=== PATIENT | female | born 1965 | race Caucasian/White ===

== ENCOUNTER → 2022-11-28 | Outpatient (CLI) | payer OTHER ==
--- NOTE | 2022-11-28 17:14 | Diagnostic Imaging Report ---
CLINICAL HISTORY: Chronic neck pain. No known injury. COMPARISON: None. TECHNIQUE: 5 views of the cervical spine. FINDINGS: There is no acute fracture or dislocation of the cervical spine. Alignment is anatomic. The dens has a normal appearance. Degenerative changes are present in the cervical spine with marginal osteophytes and uncovertebral arthropathy, greatest at the C5-C6 and C6-C7 levels. The prevertebral soft tissues are unremarkable. The included lungs are clear. IMPRESSION: 1. No acute fracture or dislocation in the cervical spine. Dictated by: Dictated on workstation # [id number]
--- NOTE | 2022-11-28 17:14 | Diagnostic Imaging Report ---
EXAMINATION: Lumbosacral spine 2 or 3 views HISTORY: Chronic low back pain. No known injury. COMPARISON: None available. FINDINGS: There is no acute fracture or dislocation of the lumbar spine. There is mild straightening of the lumbar spine. No suspicious focal osseous lesions. Degenerative changes are present with disc height loss and facet hypertrophy greatest at L5-S1. IMPRESSION: 1. No acute fracture or dislocation in the lumbar spine. Dictated by: Dictated on workstation # [id number]
--- NOTE | 2022-11-28 17:53 | Diagnostic Imaging Report ---
INDICATION: Knee pain TECHNIQUE: 2 views of the right knee CORRELATION STUDY: None FINDINGS: Mild joint space narrowing both medially and laterally. There is no acute bony abnormality. The articular surfaces are otherwise maintained and unremarkable. Soft tissues are unremarkable. IMPRESSION: 1. Negative for acute bony abnormality of the knee. Mild joint space narrowing medially and laterally. Dictated by: Dictated on workstation # [id number]
== END ==
LOC: RAD 11:15
PROVIDERS: ATTEND Family Medicine
DX: M25.861 Other specified joint disorders, right knee (principal); M54.50 Low back pain, unspecified; M54.2 Cervicalgia
CPT/HCPCS: 72050; 72100; 73560